=== PATIENT | female | born 1940 | race Caucasian/White ===

== ENCOUNTER → 2021-03-21 13:29 | Outpatient (CLI) | payer MEDICARE, OTHER | END | disposition home or self-care (01) | LOC: D.RAD 13:29 | PROVIDERS: ATTEND Internal Medicine Gastroenterology | DX: Z86.010 Personal history of colon polyps (principal); Z80.0 Family history of malignant neoplasm of digestive organs; K57.31 Diverticulosis of large intestine without perforation or abscess with bleeding ==